=== PATIENT | male | born 1955 | race Caucasian/White ===

== ENCOUNTER 2020-12-09 18:50 | Emergency (ER) | payer MEDICARE, OTHER ==
[~2020-12-09] VITALS: Ht 172.7 cm; Wt 85.1 kg
[~2020-12-09 18:50] MED LIST: ACYC-40 PO; CAND16TA25 PO; GLIP10TA13 PO; HYDR-3241 PO; METH750T87 PO; OXYC5CAP2 PO; [UNRECOGNIZED DRUG - OTHER]
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
--- NOTE | 2020-12-09 19:04 | NUR ---
ERP AT BEDSIDE
--- NOTE | 2020-12-09 19:23 | NUR ---
PT TO IMAGING
--- NOTE | 2020-12-09 20:05 | NUR ---
PT RETURNED FROM XR
[2020-12-09 20:31] VITALS: BP 158/80
--- NOTE | 2020-12-09 20:43 | NUR ---
Patient given discharge instructions and they have confirmed that they understand the instructions. Patient ambulatory with steady gait.
== END 2020-12-09 20:45 | disposition home or self-care (01) ==
LOC: ED 20:00
DX: S16.1XXA Strain of muscle, fascia and tendon at neck level, initial encounter (principal); M54.5 Low back pain; M51.36 Other intervertebral disc degeneration, lumbar region; V43.53XA Car driver injured in collision with pick-up truck in traffic accident, initial encounter; Y93.89 Activity, other specified; Y92.410 Unspecified street and highway as the place of occurrence of the external cause; Y99.8 Other external cause status
CPT/HCPCS: 72110; 72125; 99284